=== PATIENT | male | born 1970 | race Caucasian/White ===

== ENCOUNTER 2018-01-04 19:31 | Emergency (ER) | payer OTHER ==
[~2018-01-04] VITALS: Ht 185.4 cm; Wt 90.7 kg
[2018-01-04 19:37] VITALS: BP 161/93
[2018-01-04] MEDS ORDERED: LIDOCAINE 0.5% HCL 50 ML VIAL ONE (20:11)
[2018-01-04] MEDS ORDERED: LIDOCAINE HCL/PF 1% 30 ML VIAL TP ONE (20:30)
== END 2018-01-04 21:54 | disposition home or self-care (01) ==
LOC: ER 19:36
DX: S61.211A Laceration without foreign body of left index finger without damage to nail, initial encounter (principal); W26.0XXA Contact with knife, initial encounter; Y93.89 Activity, other specified; Y92.89 Other specified places as the place of occurrence of the external cause; Y99.8 Other external cause status
CPT/HCPCS: A4606; A6402; J3490; Z7610

== ENCOUNTER 2023-08-19 15:24 | Emergency (ER) | payer OTHER ==
[~2023-08-19] VITALS: Ht 185.4 cm; Wt 90.7 kg
[2023-08-19] MEDS ORDERED: LIDOCAINE HCL/PF 1% 30 ML VIAL TP ONE (16:00)
[2023-08-19] MEDS ORDERED: LIDOCAINE 1% INJ 50 ML MDV IJ ONE (16:02)
[2023-08-19] MEDS ORDERED: TDAP [DIPH/PERTUSSIS/TET] 0.5 ML VIAL IM ONE (16:03)
[2023-08-19] MEDS: TDAP [DIPH/PERTUSSIS/TET] 0.5 ML VIAL IM ONE ×2 (16:16→16:22)
[2023-08-19 16:56] VITALS: BP 156/92; TEMP 98.3; O2SAT 97
== END 2023-08-19 16:57 | disposition home or self-care (01) ==
LOC: ER 15:24
DX: S61.214A Laceration without foreign body of right ring finger without damage to nail, initial encounter (principal); Z60.2 Problems related to living alone; Z88.2 Allergy status to sulfonamides; W26.8XXA Contact with other sharp object(s), not elsewhere classified, initial encounter; Y93.89 Activity, other specified; Y92.89 Other specified places as the place of occurrence of the external cause; Y99.8 Other external cause status
CPT/HCPCS: 12001; 99282; A6403; J3490; 90715